=== PATIENT | female | born 1985 | race Two or more races ===

== ENCOUNTER 2018-03-06 10:23 | Emergency (ER) | payer OTHER ==
[2018-03-06 10:29] VITALS: BP 96/57; TEMP 98.4; BMI 33.8
--- NOTE | 2018-03-06 10:43 | PDOC ---
Attending Attestation - HPI HPI: 03/06/18 12:03 The patient is a 32 year old female (), currently 17 weeks with a significant PMH of an appendectomy who presents to the emergency department with vaginal bleeding and abdominal cramping for 3 weeks. The patient reports that her abdominal pain is suprapubic and describes it as a non- radiating cramping pressure that is intermittent and 5/10 in severity. The patient reports that her abdominal suprapubic pain is associated with her vaginal spotting that has also been constant for the same duration of time. The patient denies any other symptoms. She denies any fever, chills, nausea, vomit, diarrhea ,constipation urinary symptoms, or clots. She denies chest pain, shortness of breath, headache and dizziness. The patient denies any other complaints. Documentation prepared by Anne Marie Almeida, acting as medical insurance coder for Karen Aden MD. <Anne Marie Almeida - Last Filed: 03/06/18 12:03> - Resident Resident Name: Gonzalo Mckeon - ED Attending Attestation I have performed the following: I have examined & evaluated the patient, The case was reviewed & discussed with the resident, I agree w/resident's findings & plan, Exceptions are as noted - Physicial Exam PE: GENERAL: Awake, alert, and fully oriented, in no acute distress HEAD: No signs of trauma EYES: PERRLA, EOMI, sclera anicteric, conjunctiva clear ENT: Auricles normal inspection, hearing grossly normal, nares patent, oropharynx clear without exudates. Moist mucosa NECK: Normal ROM, supple, no lymphadenopathy, JVD, or masses LUNGS: Breath sounds equal, clear to auscultation bilaterally. No wheezes, and no crackles HEART: Regular rate and rhythm, normal S1 and S2, no murmurs, rubs or gallops ABDOMEN: Soft, nontender, normoactive bowel sounds. No guarding, no rebound. No masses EXTREMITIES: Normal range of motion, no edema. No clubbing or cyanosis. No cords, erythema, or tenderness NEUROLOGICAL: Cranial nerves II through XII grossly intact. Normal speech, normal gait. Motor and sensation intact. SKIN: Warm, Dry, normal turgor, no rashes or lesions noted. - Medical Decision Making Pt with intermittent spotting, currently 17 WGA. She presents for vaginal spotting, poss recent UTI, and to establish footwear sales leader care. She recently moved from [place]. She was told she had a UTI in the ED at [facility], then was given different information in the clinic. Will repeat UA in ED today. Pt received RhoGAM at [facility]. <Karen Aden - Last Filed: 03/06/18 14:32>
--- NOTE | 2018-03-06 11:20 | PDOC ---
History of Present Illness - General Chief Complaint: Vaginal Bleeding Stated Complaint: VAGINAL BLEEDING (17 WKS ) Time Seen by Provider: 03/06/18 10:41 History Source: Patient Exam Limitations: No Limitations - History of Present Illness Initial Comments: 03/06/18 11:14 The patient is a 32F at 17 weeks by ultrasound who presents to the ER with complaints of abdominal pain and vaginal spotting. The patient states that she' s had suprapubic pressure/cramping for 2-3 weeks which is intermittent, 5/10, nonradiating, and associated with vaginal spotting. Her vaginal spotting has also been constant for 2-3 weeks. She denies passing any dysuria, hematuria, clots, nausea, vomiting, fever, chills, CP, SOB. Past History - Past Medical History Allergies/Adverse Reactions: Allergies Allergy/AdvReac Type Severity Reaction Status Date / Time No Known Allergies Allergy Verified 03/06/18 10:25 Home Medications: Ambulatory Orders NK [No Known Home Medication] 03/06/18 COPD: No Other medical history: DENIES. - Surgical History Appendectomy: Yes - Suicide/Smoking/Psychosocial Hx Smoking History: Former smoker Have you smoked in the past 12 months: No Information on smoking cessation initiated: No Review of Systems - Review of Systems Able to Perform ROS?: Yes Comments:: 03/06/18 11:20 GENERAL/CONSTITUTIONAL: No fever or chills. No weakness. HEAD, EYES, EARS, NOSE AND THROAT: No change in vision. No ear pain or discharge. No sore throat. CARDIOVASCULAR: No chest pain, palpitations, or lightheadedness. RESPIRATORY: No cough, wheezing, shortness of breath, or hemoptysis. GASTROINTESTINAL: Positive No nausea, vomiting, diarrhea, constipation, or abdominal pain. GENITOURINARY: Positive for vaginal bleeding. No dysuria, frequency, hematuria, or change in urination. MUSCULOSKELETAL: No joint or muscle swelling or pain. No neck or back pain. SKIN: No rash or lesions. NEUROLOGIC: No headache, numbness, tingling, weakness, loss of consciousness, or change in strength/sensation. ENDOCRINE: No increased thirst. No abnormal weight change. HEMATOLOGIC/LYMPHATIC: No anemia, easy bleeding, or history of blood clots. ALLERGIC/IMMUNOLOGIC: No hives or skin allergy. Is the patient limited Lao proficient: No *Physical Exam - Vital Signs Last Vital Signs Temp Pulse Resp BP Pulse Ox 98.4 F 97 H 19 96/57 98 03/06/18 10:25 03/06/18 10:25 03/06/18 10:25 03/06/18 10:25 03/06/18 10:25 - Physical Exam Comments: 03/06/18 11:29 GENERAL: Well developed, well nourished. Awake and alert. No acute distress. HEENT: Normocephalic, atraumatic. Hearing grossly normal. Moist mucous membranes. PERRLA, EOMI. No conjunctival pallor. Sclera are non-icteric. NECK: Supple. Full ROM. No JVD. CARDIOVASCULAR: Regular rate and rhythm. No murmurs, rubs, or gallops. PULMONARY: No evidence of respiratory distress. Lungs clear to auscultation bilaterally. No wheezing, rales or rhonchi. ABDOMINAL: Soft. Tender to deep palpation over suprapubic abdomen. No rebound or guarding. GENITOURINARY: No CVA tenderness bilaterally. PELVIC: Midline tenderness without adnexal tenderness or CMT. Normal external genitalia. MUSCULOSKELETAL: Normal range of motion at all joints. No bony deformities or tenderness. EXTREMITIES: No cyanosis. No clubbing. No edema. No calf tenderness or swelling. SKIN: Warm and dry. Normal capillary refill. No rashes. No jaundice. NEUROLOGICAL: Alert, awake, appropriate. Cranial nerves 2-12 intact. Normal speech. Gait is normal without ataxia. PSYCHIATRIC: Cooperative. Good eye contact. Appropriate mood and affect. ED Treatment Course - LABORATORY CBC & Chemistry Diagram: 03/06/18 11:40 03/06/18 11:40 Medical Decision Making - Medical Decision Making 03/06/18 12:00 The patient is a 32F who presents with suprapubic cramping/pressure with vaginal spotting. Ddx is UTI vs threatened . Pt had U/S done at a different facility at the end of January showing an IUP. She does not have any care. She recently moved to [place] and is interested in a establishing care. Pending labs and U/S. 03/06/18 12:37 UA negative. Pending US. 03/06/18 12:38 US shows single, live IUP with FHR of 158. Will d/c pt with PATIENT SUPPORT ASSOCIATE f/u. *DC/Admit/Observation/Transfer Diagnosis at time of Disposition: Vaginal bleeding during - Discharge Dispostion Disposition: HOME Condition at time of disposition: Stable Decision to Admit order: No - Referrals Referrals: Ernesto Cid MD [Staff Physician] - Jimmy Garrido MD [Staff Physician] - - Patient Instructions Printed Discharge Instructions: Managing Symptoms of Additional Instructions: Please follow up with the PATIENT SUPPORT ASSOCIATE and primary care doctor in 2-3 days. Please return to the ER if you have any signs or symptoms of chest pain, shortness of breath, uncontrollable fever, chills, nausea, vomiting, numbness, tingling, or weakness in any part of your body, changes in vision, or slurred speech. Please return to the ER if symptoms persist, worsen, or new symptoms arise. - Post Discharge Activity
[2018-03-06 11:52] LABS: BASO % 0.6 % (0-2.0); EOS % 0.8 % (0-4.5); HEMATOCRIT 35.4 % (32.4-45.2); HEMOGLOBIN 12.1 GM/dL (10.7-15.3); LYMPH % 19.4 % (8-40); MCH 31.2 pg (25.7-33.7); MCHC 34.3 g/dl (32.0-36.0); MONO % 4.7 % (3.8-10.2); NEUT % 74.5 % (42.8-82.8); PLATELET COUNT 307 K/MM3 (134-434); RBC 3.88 M/mm3 (3.60-5.2); RDW 13.3 % (11.6-15.6); WHITE BLOOD COUNT 11.2 K/mm3 (4.0-10.0)
[2018-03-06 11:55] LABS: URINE APPEARANCE SLCLOUDY; URINE BILIRUBIN NEGATIVE (<2.0 mg/dL); URINE COLOR YELLOW; URINE GLUCOSE (UA) NEGATIVE (NEGATIVE); URINE KETONE NEGATIVE (NEGATIVE); URINE LEUK ESTERASE NEGATIVE (NEGATIVE); URINE NITRITE NEGATIVE (NEGATIVE); URINE PROTEIN NEGATIVE (NEGATIVE); URINE UROBILINOGEN NEGATIVE mg/dL (0.2-1.0)
[2018-03-06 12:03] LABS: EPI CELLS FEW /HPF (FEW); URINE MUCUS RARE
[2018-03-06 12:10] LABS: ALBUMIN 3.1 g/dl (3.4-5.0); ANION GAP 11 (8-16); BLOOD UREA NITROGEN 7 mg/dL (7-18); CALCIUM 8.9 mg/dL (8.5-10.1); CHLORIDE 102 mmol/L (98-107); CO2 25 mmol/L (21-32); GLUCOSE,RANDOM 85 mg/dL (74-106); POTASSIUM 3.7 mmol/L (3.5-5.1); SGPT/ALT 24 U/L (12-78); SODIUM 138 mmol/L (136-145)
[2018-03-06 12:46] LABS: ALK PHOS 59 U/L (45-117); BILIRUBIN,TOTAL 0.4 mg/dL (0.2-1.0); CREATININE 0.5 mg/dL (0.55-1.02); SGOT/AST 15 U/L (15-37); TOT PROT 6.8 g/dl (6.4-8.2)
[2018-03-06 13:10] VITALS: PULSE 78
[2018-03-06 14:55] LABS: PLATELET ESTIMATE ADEQUATE
== END 2018-03-06 13:11 | disposition home or self-care (01) ==
LOC: JER 10:23
DX: O26.891 Other specified pregnancy related conditions, first trimester (principal); O46.91 Antepartum hemorrhage, unspecified, first trimester; Z3A.17 17 weeks gestation of pregnancy
CPT/HCPCS: 36415; 76817-TC; 80053; 81003; 81015; 84702; 85025; 86850; 86870; 86900; 86901; 86902; 87086; 99282-25

== ENCOUNTER 2018-08-14 06:20 | Inpatient (IN) | payer OTHER ==
[2018-08-14] MEDS ORDERED: ELECTROLYTE-148 SOLN 1,000 ML IV ONE (06:45)
[2018-08-14 06:53] VITALS: BMI 38.6
[2018-08-14] MEDS ORDERED: OXYTOCIN 20 UNITS in 0.9% NS 40 UNIT/2,000 ML INFUS.BAG IV ONE (07:57)
[2018-08-14] MEDS ORDERED: ceFAZolin SODIUM 1 GM VIAL ONE (07:58)
[2018-08-14] MEDS ORDERED: DEXAMETHASONE SOD PHOSPHATE 4 MG/1 ML VIAL ONE (07:58)
[2018-08-14] MEDS ORDERED: morphine SULFATE/Preservative Free 0.5 MG/ML (1cc Syringe) ONE (07:59)
[2018-08-14] MEDS ORDERED: OXYTOCIN 10 UNITS/ML VIAL ONE (08:49)
[2018-08-14] MEDS ORDERED: MIDAZOLAM HCL 2 MG/2 ML SINGLE DOSE VIAL ONE (08:58)
[2018-08-14] MEDS ORDERED: KETOROLAC TROMETHAMINE 30 MG/1 ML VIAL ONE (09:06)
[2018-08-14] MEDS: OXYTOCIN 20 UNITS in 0.9% NS 20 UNIT/1,000 ML INFUS.BAG IV SCH ×2 (09:10→16:26)
[2018-08-14] MEDS ORDERED: CITRIC ACID/SODIUM CITRATE 30 ML UNIT-DOSE CUP PO ONE (09:14)
[2018-08-14] MEDS ORDERED: ELECTROLYTE-148 SOLN 1,000 ML IV SCH (09:15)
[2018-08-14] MEDS ORDERED: IBUPROFEN 800 MG/8 ML IJ IVPB PRN (09:15)
[2018-08-14] MEDS ORDERED: oxyCODONE HCL 5 MG TABLET PO PRN (09:15)
[2018-08-14] MEDS ORDERED: METHYLERGONOVINE MALEATE 0.2 MG/1 ML AMP IM PRN (09:15)
--- NOTE | 2018-08-14 09:19 | HP ---
Past Medical History - Admission Chief Complaint: RLTCS History of Present Illness: 32yo @ 40.5wks here for ERCS No VB/LOF. No ctx. +FM Previously desires TOLAC, however, no cervical dilation at last office visit. Preg c/b one prior C/S. 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: Alzheimer's, CVA, Dementia, Migraine, Multiple Sclerosis, Peripheral Neuropathy, Parkinson's, Seizure, Syncope, TIA, Vertigo, Other Cardiovascular: No: AFIB, Aneurysm, Aortic Insufficiency, Aortic Stenosis, CAD, CHF, Deep Vein Thrombosis, HTN, Hyperlipdemia, MS, Mitral Insufficiency, Mitral Stenosis, Murmur, Pulmonary Hypertension, Other Pulmonary: No: Asthma, Bronchitis, Cancer, COPD, O2 Dependent, Pneumonia, Previously Intubated, Pulmonary Embolus, Pulmonary Fibrosis, Sleep Apnea, Other Gastrointestinal: No: Ascites, Cancer, Constipation, Crohn's Disease, Diverticulitis, Diverticulosis, Esophageal Varices, Gastritis, GERD, GI Bleed, Hemorrhoids, Hiatal Hernia, Inflamatory Bowel Disease, Irritable Bowel Disease, Pancreatitis, Peptic Ulcer Disease, Ulcerative Colitis, Other ...: 5 ...Para: 1 ...Term: 1 ...: 0 ...Spon : 0 ...Induced : 3 ...Multiple Gestation: 0 ...LMP: 11/02/17 ... Weeks Gestation by Dates: 40.5 ...EDC by Dates: 08/09/18 Infectious Disease: No: AIDS, C-Diff, Herpes Zoster, HIV, MRSA, STD's, Tuberculosis, VREF, Other Psych: No: Addictions, Anxiety, Bipolar, Depression, Panic, Psychosis, Schizophrenia, Other Musculoskeletal: No: Bursitis, Chronic low back pain, Hemiparesis, Hemiplegia, Osteoarthritis, Paraplegia, Other ENT: No: Allergic Rhinitis, Sinusitis, Other Endocrine: No: Jones's Disease, Brian's Disease, Diabetes Insipidus, Diabetes Mellitus, Hyperparathyroidism, Hyperthyroidism, Hypothyroidism, Osteopenia, SIADH, Other - Past Surgical History Past Surgical History: Yes: Hx Myomectomy: No Hx Transabdominal Cerclage: No - Smoking History Smoking history: Never smoked Have you smoked in the past 12 months: No - Alcohol/Substance Use Hx Alcohol Use: No History of Substance Use: reports: None - Social History Usual Living Arrangement: Yes: With Spouse ADL: Independent History of Recent Travel: No Home Medications - Allergies Allergies/Adverse Reactions: Allergies Allergy/AdvReac Type Severity Reaction Status Date / Time thacker Allergy Mild Itching Verified 08/14/18 06:36 kiwi Allergy Mild Itching Verified 08/14/18 06:36 strawberry Allergy Mild Itching Verified 08/14/18 06:36 GRAPES Allergy Mild Itching Uncoded 08/14/18 06:36 - Home Medications Home Medications: Ambulatory Orders Vitamins (Sjr) - 1 tab PO DAILY 08/14/18 Physical Exam - Maternity Vital Signs: Vital Signs Temperature 98.8 F 08/14/18 06:20 Pulse Rate 89 08/14/18 06:20 Respiratory Rate 20 08/14/18 06:20 Blood Pressure 128/72 08/14/18 06:20 O2 Sat by Pulse Oximetry (%) Constitutional: Yes: Well Nourished, No Distress, Calm Eyes: Yes: WNL, Conjunctiva Clear, EOM Intact HENT: Yes: WNL, Atraumatic, Normocephalic Neck: Yes: WNL, Supple, Trachea Midline Cardiovascular: Yes: WNL, Regular Rate and Rhythm Breast(s): Yes: WNL Assessment/Plan 32yo @ 40.5wks here for ERCS Admit to L&D NPO, IVFs Ancef SCDs Risk of procedure discussed, including bleeding, infection, injury to bladder/ bowel/tubes and ovaries. All questions answered. Consent signed. Jeanne Tavarez MD
[2018-08-14] MEDS ORDERED: ONDANSETRON 4 MG/2 ML VIAL IVPUSH PRN (09:34)
[2018-08-14] MEDS ORDERED: ACETAMINOPHEN 1000 MG/100 ML VIAL (NON FORMULARY) IVPB ONE (09:35)
[2018-08-14] MEDS: FERROUS SO4 325 MG TABLET (FP) PO SCH ×2 (10:06→21:37)
--- NOTE | 2018-08-14 10:16 | OP ---
DATE OF OPERATION: 08/14/2018 PREOPERATIVE DIAGNOSIS: A 40-week , elective repeat section. POSTOPERATIVE DIAGNOSIS: A 40-week , elective repeat section. PROCEDURE: Repeat low transverse section, lysis of adhesions. SURGEON: Jeanne Tavarez MD GASTROENTEROLOGY TEACHER: KELLY Estrella ANESTHESIA: Spinal. INTRAVENOUS FLUIDS: Per anesthesia record. ESTIMATED BLOOD LOSS: 600 mL. URINE OUTPUT: Clear urine 100 mL at the end of the procedure. FINDINGS: Viable male , MIKE position, no nuchal, no meconium, 9, 9, weight pending, normal placenta, normal tubes and ovaries bilaterally. There was a thin, however, wide omental band adhesion to the anterior uterus. COMPLICATIONS: None. CONDITION: Stable to recovery. NATURE OF PROCEDURE: After appropriate consents were signed, the patient was taken to the operating room where spinal anesthesia was administered. She was placed in supine position with a left lateral tilt. Kilgore catheter was inserted. The abdomen was prepped and draped in normal sterile fashion. Time-out was performed confirming correct patient and procedure. A Pfannenstiel skin incision was made through the previous incision and carried through the underlying layers until the fascia was nicked in the midline. The fascia was extended with the Cortes scissors bilaterally. The inferior aspect of the fascia was grasped with Mayra clamps, tented upwards, and taken down bluntly and with the Cortes scissors. Attention was then paid to the superior aspect, which was taken down in a similar fashion. The rectus muscles were bluntly in the midline. The peritoneum was entered bluntly. Bladder blade was inserted. Vesicular uterine reflection was grasped, tented upwards, nicked in the midline with the Metzenbaum scissors, and extended laterally with the Metzenbaum scissors. The bladder flap was then created digitally. The bladder blade was reinserted. The uterus was then incised in the lower uterine segment in a transverse fashion. Clear amniotic fluid was noted. Infants head was delivered without difficulty as were the remaining shoulders and body. The cord was clamped and cut. The was then handed off to the pediatric staff. The placenta was removed spontaneously. The uterus was then cleared of clot and debris. The uterus was then exteriorized. The thin, but wide omental band to the anterior uterus in the fundal area was then noted. However, the hysterotomy was closed first with a 1-0 Vicryl in an imbricating Lambert fashion with good hemostasis. Then, using the Metzenbaum scissors, the omental band adhesion on the anterior uterus was then reduced in the areas that were filmy and the fat-consisting areas. Decision was made then to suture ligate using a 1-0 Vicryl. Using the Bovie, the band was then freed. Hemostasis was achieved on the anterior uterine wall with Bovie cautery. Hemostasis was achieved, and in an effort to avoid future adhesions, an Interceed was placed. Once an Interceed was then placed on the anterior uterine wall, the uterus was then reintroduced into the abdominal cavity. The hysterotomy was reexamined and noted to be hemostatic. The anterior uterine wall was noted to also be hemostatic. Bladder blade was then removed. The muscles were reapproximated with a 2-0 chromic, fascia was closed with a 0 Vicryl, skin was closed with a 3-0 Vicryl. Appropriate bandages were placed. Sponge, lap, needle counts were correct x3 at the end of the procedure. Patient did receive 2 g of Ancef at the start of the procedure. She was taken to the recovery area room in stable condition. MD MARGARETTE NEWMAN/[id number]
[2018-08-14] MEDS ORDERED: ACETAMINOPHEN 1000 MG/100 ML VIAL (NON FORMULARY) IVPB PRN (10:42)
[2018-08-14] MEDS: PRENATAL VITAMINS W/ FOLIC ACID TABLET (FP) PO SCH (11:12)
[2018-08-15 09:27] LABS: BASO % 0.3 % (0-2.0); EOS % 0.5 % (0-4.5); HEMATOCRIT 30.3 % (32.4-45.2); HEMOGLOBIN 10.4 GM/dL (10.7-15.3); MCH 31.4 pg (25.7-33.7); MCHC 34.5 g/dl (32.0-36.0); MEAN PLT VOLUME 8.3 fl (7.5-11.1); MONO % 6.5 % (3.8-10.2); NEUT % 68.7 % (42.8-82.8); PLATELET COUNT 245 K/MM3 (134-434); RBC 3.33 M/mm3 (3.60-5.2); RDW 13.6 % (11.6-15.6); WHITE BLOOD COUNT 15.7 K/mm3 (4.0-10.0)
[2018-08-15] MEDS: SIMETHICONE 80 MG TAB.CHEW (FP) PO PRN ×2 (09:35→14:06)
[2018-08-15] MEDS: IBUPROFEN 600 MG TABLET (FP) PO PRN ×3 (09:36→20:05)
[2018-08-15] MEDS: PRENATAL VITAMINS W/ FOLIC ACID TABLET (FP) PO SCH (09:36)
[2018-08-15] MEDS: FERROUS SO4 325 MG TABLET (FP) PO SCH ×2 (09:36→22:00)
--- NOTE | 2018-08-15 10:19 | PN ---
Progress Note (short form) - Note Progress Note: POD #1 - s/p repeat under spinal anesthesia with duramorph. Pt. doing well, resting comfortably in bed. No complaints. Good pain control. No apparent anesthetic complications noted. Continue current care.
[2018-08-15] MEDS: OXYTOCIN 20 UNITS in 0.9% NS 20 UNIT/1,000 ML INFUS.BAG IV SCH (11:28)
[2018-08-15] MEDS: ACETAMINOPHEN 325 MG TABLET (FP) PO PRN ×2 (11:29→20:00)
--- NOTE | 2018-08-15 11:49 | PN ---
Post Progress Note - Subjective Subjective: Pain controlled No issues overnight Type of Delivery: Repeat C/S Vital Signs: Vital Signs Temperature 98.6 F 08/15/18 06:00 Pulse Rate 80 08/15/18 06:00 Respiratory Rate 18 08/15/18 08:00 Blood Pressure 116/76 08/15/18 06:00 O2 Sat by Pulse Oximetry (%) 97 08/14/18 10:30 Uterus: Yes: Fundus Firm, Fundus below umbilicus Incision: Yes: Dressing dry and intact Abdomen/GI: Yes: Abdomen soft Lochia: Yes: Rubra Lochia, amount: Small Extremities: Yes: Calves non-tender Activity: Ambulating - Labs Labs: CBC WBC 15.7 K/mm3 (4.0-10.0) H 08/15/18 07:45 RBC 3.33 M/mm3 (3.60-5.2) L 08/15/18 07:45 Hgb 10.4 GM/dL (10.7-15.3) L 08/15/18 07:45 Hct 30.3 % (32.4-45.2) L D 08/15/18 07:45 MCV 91.0 fl (80-96) 08/15/18 07:45 MCH 31.4 pg (25.7-33.7) 08/15/18 07:45 MCHC 34.5 g/dl (32.0-36.0) 08/15/18 07:45 RDW 13.6 % (11.6-15.6) 08/15/18 07:45 Plt Count 245 K/MM3 (134-434) 08/15/18 07:45 MPV 8.3 fl (7.5-11.1) 08/15/18 07:45 Absolute Neuts (auto) 10.8 K/mm3 (1.5-8.0) H 08/15/18 07:45 Neutrophils % 68.7 % (42.8-82.8) 08/15/18 07:45 Lymphocytes % 24.0 % (8-40) 08/15/18 07:45 Monocytes % 6.5 % (3.8-10.2) 08/15/18 07:45 Eosinophils % 0.5 % (0-4.5) 08/15/18 07:45 Basophils % 0.3 % (0-2.0) 08/15/18 07:45 Nucleated RBC % 0 % (0-0) 08/15/18 07:45 Assessment/Plan 32yo s/p RLTCS, POD#1 Routine PP care OOB, ambulate Labs reviewed Anticipate d/c to home by POD#4 Jeanne Tavarez MD
[2018-08-15] MEDS: DOCUSATE SODIUM 100 MG CAPSULE (FP) PO SCH (22:00)
[2018-08-16] MEDS: FERROUS SO4 325 MG TABLET (FP) PO SCH ×2 (11:04→21:26)
[2018-08-16] MEDS: DOCUSATE SODIUM 100 MG CAPSULE (FP) PO SCH ×2 (11:04→21:26)
[2018-08-16] MEDS: PRENATAL VITAMINS W/ FOLIC ACID TABLET (FP) PO SCH (11:04)
[2018-08-16] MEDS: IBUPROFEN 600 MG TABLET (FP) PO PRN ×4 (11:08→22:20)
[2018-08-16] MEDS: ACETAMINOPHEN 325 MG TABLET (FP) PO PRN ×4 (11:08→22:20)
--- NOTE | 2018-08-16 11:56 | PN ---
Post Progress Note Type of Delivery: Repeat C/S Vital Signs: Vital Signs Temperature 98.7 F 08/15/18 22:00 Pulse Rate 76 08/15/18 22:00 Respiratory Rate 20 08/15/18 22:00 Blood Pressure 115/54 L 08/15/18 22:00 O2 Sat by Pulse Oximetry (%) 97 08/14/18 10:30 Breast Exam: Yes: Soft Uterus: Yes: Fundus below umbilicus Incision: Yes: Dressing dry and intact, Oozing Abdomen/GI: Yes: Tolerating PO Lochia: Yes: Rubra Lochia, amount: Small Extremities: Yes: Calves non-tender Perineum: Yes: Intact Activity: Ambulating (Pain controlled, ) - Labs Labs: CBC WBC 15.7 K/mm3 (4.0-10.0) H 08/15/18 07:45 RBC 3.33 M/mm3 (3.60-5.2) L 08/15/18 07:45 Hgb 10.4 GM/dL (10.7-15.3) L 08/15/18 07:45 Hct 30.3 % (32.4-45.2) L D 08/15/18 07:45 MCV 91.0 fl (80-96) 08/15/18 07:45 MCH 31.4 pg (25.7-33.7) 08/15/18 07:45 MCHC 34.5 g/dl (32.0-36.0) 08/15/18 07:45 RDW 13.6 % (11.6-15.6) 08/15/18 07:45 Plt Count 245 K/MM3 (134-434) 08/15/18 07:45 MPV 8.3 fl (7.5-11.1) 08/15/18 07:45 Absolute Neuts (auto) 10.8 K/mm3 (1.5-8.0) H 08/15/18 07:45 Neutrophils % 68.7 % (42.8-82.8) 08/15/18 07:45 Lymphocytes % 24.0 % (8-40) 08/15/18 07:45 Monocytes % 6.5 % (3.8-10.2) 08/15/18 07:45 Eosinophils % 0.5 % (0-4.5) 08/15/18 07:45 Basophils % 0.3 % (0-2.0) 08/15/18 07:45 Nucleated RBC % 0 % (0-0) 08/15/18 07:45 Assessment/Plan 32yo s/p RLTCS, POD#2 Routine PP care OOB, ambulate Labs reviewed Anticipate d/c to home by POD#4 Jeanne Tavarez MD
[2018-08-16] MEDS: SIMETHICONE 80 MG TAB.CHEW (FP) PO PRN ×2 (17:02→22:20)
[2018-08-17 07:28] LABS: BASO % 0.4 % (0-2.0); EOS % 2.7 % (0-4.5); HEMATOCRIT 31.5 % (32.4-45.2); HEMOGLOBIN 10.7 GM/dL (10.7-15.3); LYMPH % 28.3 % (8-40); MCH 31.4 pg (25.7-33.7); MCHC 33.9 g/dl (32.0-36.0); MEAN CELL VOLUME 92.6 fl (80-96); MEAN PLT VOLUME 7.9 fl (7.5-11.1); MONO % 5.9 % (3.8-10.2); NEUT % 62.7 % (42.8-82.8); PLATELET COUNT 246 K/MM3 (134-434); RBC 3.41 M/mm3 (3.60-5.2); RDW 13.9 % (11.6-15.6); WHITE BLOOD COUNT 9.4 K/mm3 (4.0-10.0)
--- NOTE | 2018-08-17 07:28 | DS ---
Physical Examination Vital Signs: Vital Signs Temperature 98.7 F 08/16/18 21:00 Pulse Rate 82 08/16/18 21:00 Respiratory Rate 20 08/16/18 21:00 Blood Pressure 118/63 08/16/18 21:00 O2 Sat by Pulse Oximetry (%) 97 08/14/18 10:30 Constitutional: Yes: Well Nourished, No Distress, Calm Eyes: Yes: WNL, Conjunctiva Clear, EOM Intact HENT: Yes: WNL, Atraumatic, Normocephalic Neck: Yes: WNL, Supple, Trachea Midline Cardiovascular: Yes: WNL, Regular Rate and Rhythm Respiratory: Yes: WNL, Regular, CTA Bilaterally Gastrointestinal: Yes: WNL, Normal Bowel Sounds Musculoskeletal: Yes: WNL Extremities: Yes: WNL Edema: No Integumentary: Yes: WNL Neurological: Yes: WNL, Alert, Oriented ...Motor Strength: WNL Psychiatric: Yes: WNL Discharge Summary Reason For Visit: SCHEDULE RLTCS Procedures: Principal: RLTCS Other Procedures: RLTCS Hospital Course: Pt presented for scheduled RLTCS Her procedure was uncomplicated Her postoperative course was uncomplicated and she was discharged home on POD#3 Condition: Stable - Instructions Referrals: Jeanne Tavarez MD [Staff Physician] - Disposition: HOME - Home Medications Comprehensive Discharge Medication List: Ambulatory Orders Vitamins (Sjr) - 1 tab PO DAILY 08/14/18 Ibuprofen 600 mg PO Q6H PRN #30 tablet 08/16/18 Oxycodone HCl/Acetaminophen [Percocet 5-325 mg Tablet -] 1 - 2 tab PO Q6H PRN # 20 tab MDD 4 08/16/18
[2018-08-17] MEDS: PRENATAL VITAMINS W/ FOLIC ACID TABLET (FP) PO SCH (09:43)
[2018-08-17] MEDS: IBUPROFEN 600 MG TABLET (FP) PO PRN (09:43)
[2018-08-17] MEDS: DOCUSATE SODIUM 100 MG CAPSULE (FP) PO SCH (09:43)
[2018-08-17] MEDS: FERROUS SO4 325 MG TABLET (FP) PO SCH (09:43)
[2018-08-17] MEDS: ACETAMINOPHEN 325 MG TABLET (FP) PO PRN (09:43)
[2018-08-17 09:52] VITALS: BP 126/70; PULSE 76; TEMP 97.8
[2018-08-17 11:36] LABS: ANISOCYTOSIS 0; MACROCYTOSIS 0; PLATELET ESTIMATE NORMAL
--- NOTE | 2018-08-21 19:33 | PATH ---
Surgical Pathology Report Patient Name: SHANTELLE BROWN [facility]. Rec. 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 Electronically Signed Gaye Downs M.D. Gross Description The specimen is received fresh labeled placenta and is a 659 gram, 18.5 x 15.0 x 3.3 cm. placenta with attached membranes and umbilical cord. The attached membranes are bosch, translucent with focal opacities and insert marginally. The umbilical cord measures 38 cm. in length and averages 1.4 cm. in diameter. The cord inserts eccentrically, 5 cm. to the nearest margin. No true knots or strictures are identified. Cut surface of the umbilical cord reveals 3 vessels. The surface is hayes blue with moderate fibrin deposition and appropriate caliber vessels. The maternal surface is red-brown and intact. Sectioning reveals red-brown, spongy parenchyma. No lesions are identified. Real Estate Agent/Broker sections are submitted in three cassettes as follows: 1- membrane rolls and umbilical cord; 2-3- full thickness sections of placenta. 08/20/2018 [facility]08/20/2018
== END 2018-08-17 13:30 | disposition home or self-care (01) | DRG 540 ==
LOC: JLDR 06:20 → J3W 11:32
PROVIDERS: ADMIT Obstetrics & Gynecology; ATTEND Obstetrics & Gynecology
PROC: 10D00Z1 Extraction of Products of Conception, Low, Open Approach (ICD-10-PCS; principal; 2018-08-14)
PROC: 3E0334Z Introduction of Serum, Toxoid and Vaccine into Peripheral Vein, Percutaneous Approach (ICD-10-PCS; 2018-08-14)
DX: O34.211 Maternal care for low transverse scar from previous cesarean delivery (principal); N85.8 Other specified noninflammatory disorders of uterus; Z3A.40 40 weeks gestation of pregnancy; Z29.13 Encounter for prophylactic Rho(D) immune globulin; Z37.0 Single live birth
CPT/HCPCS: 36415; 85025; 85461; 86850; 86900; 86901; 86999; 88307-TC

== ENCOUNTER 2019-07-27 11:00 | Day surgery (SDC) | payer OTHER ==
[2019-07-26 09:53] VITALS: BMI 34.5
--- NOTE | 2019-07-27 10:41 | HP ---
History & Physical Update - History History: No Change - Physical Physical: No Change - Assessment Assessment: No Change - Plan Plan: No Change (Chart reviewed, consent signed Patient forgot to take Cytotec in preparation for the procedure Explained to patient will attempt the procedure , if difficulty accessing uterus will have to reschedule)
--- NOTE | 2019-07-27 10:42 | OP ---
Operative Note - Note: Operative Date: 07/27/19 Pre-Operative Diagnosis: 33yo P2 with Pelvic pain Operation: Hysteroscopy/Polypectomy/D&C Findings: Small endometrial polyps Uterus entered without difficulty Post-Operative Diagnosis: Other (endometrial polyps) Surgeon: Razia Brown Anesthesiologist/DYE AUTOMATION OPERATOR: Russ Jason Anesthesia: MAC Specimens Removed: Endometrial curettings/polyps Estimated Blood Loss (mls): 5 Instrument used (Debridements only): Symphion Hysteroscope Drains & Tubes with Location: Fluid Defficit - 400cc Fluid Volume Replaced (mls): 500 Operative Report Dictated: Yes
[~2019-07-27 11:00] MED LIST: ELECTROLYTE-148 SOLN 1,000 ML IV SCH; IBUPROFEN 600 MG TABLET (FP) PO PRN; IBUPROFEN 800 MG/8 ML IJ IVPB PRN; ONDANSETRON 4 MG/2 ML VIAL IVPUSH PRN; oxyCODONE HCL 5 MG TABLET PO PRN
[2019-07-27] MEDS ORDERED: LACTATED RINGERS SOLUTION 1,000 ML IV SCH (12:00)
[2019-07-27 13:29] VITALS: BP 119/68; PULSE 87; TEMP 97.7
--- NOTE | 2019-07-28 02:24 | OP ---
DATE OF OPERATION: 07/27/2019 PREOPERATIVE DIAGNOSIS: A 33-year-old, para 2, with pelvic pain. OPERATION: Hysteroscopy, polypectomy, dilation and curettage. FINDINGS: Small endometrial polyps. Uterus entered with Symphion hysteroscope without difficulty. POSTOPERATIVE DIAGNOSIS: Endometrial polyps. SURGEON: Razia Brown MD ANESTHESIOLOGIST: Russ Jason MD ANESTHESIA: MAC. SPECIMENS REMOVED: Endometrial curettings and polyps. DESCRIPTION OF OPERATIVE PROCEDURE: After assuring informed consent, patient was brought to the operating room where she was placed in the dorsal lithotomy position. Vagina and perineum were prepped and draped in the sterile fashion. The Symphion hysteroscope was assembled, primed, and light balanced. The Huang retractors were placed into the vagina. Cervix was visualized, grasped with single-toothed tenaculum, and gradually dilated to accommodate 6.3-mm Symphion hysteroscope. Symphion hysteroscope was entered into the uterine cavity without any difficulty under direct visualization. After the above-stated findings, the resectoscope instrument was introduced through the Symphion hysteroscope and intrauterine contents were shaved and subsequently sent to Pathology. Once the uterine cavity was empty, the instruments were removed from the uterus, cervix, and vagina. Excellent hemostasis was noted. Estimated blood loss was 5 mL. All sponges and instrument counts were correct x2. Patient received 500 mL of IV fluids and drained 250 mL of urine at the beginning of the case. Fluid deficit was found to be 400 mL. Patient was brought to the recovery room in stable, extubated condition. Daquan [id number]
--- NOTE | 2019-07-29 12:58 | PATH ---
Surgical Pathology Report Patient Name: SHANTELLE BROWN [facility]. Rec. #: [id number] /Age/Gender: 1985 (Age: 33) / F Account: [id number] Location: [facility] SURGICAL Taken: 07/27/2019 Received: 07/27/2019 Reported: 07/29/2019 Physicians: Razia Brown M.D. Specimen(s) Received ENDOMETRIAL CURETTINGS AND POLYPS Clinical History Pelvic pain Final Diagnosis ENDOMETRIAL CURETTINGS AND POLYPS, POLYPECTOMY, DILATION AND CURETTAGE: POLYPOID FRAGMENTS OF SECRETORY ENDOMETRIUM, BUNDLES OF SMOOTH MUSCLE SUGGESTIVE OF SUBMUCOSAL LEIOMYOMA, AND RARE ENDOCERVICAL TISSUE ADMIXED WITH MUCUS. Electronically Signed Gyae Downs M.D. Gross Description Received in formalin labeled "endometrial curettings and polyps," is a 4.0 x 3.5 x 0.3 cm aggregate of bosch soft tissue fragments admixed with mucus. The formalin is filtered and the specimen is entirely submitted in 3 cassettes. /07/28/2019 saudi/07/28/2019
== END 2019-07-27 13:10 | disposition home or self-care (01) ==
LOC: JASU-SURG 11:00
PROVIDERS: ATTEND Obstetrics & Gynecology
PROC: 0UDB7ZX Extraction of Endometrium, Via Natural or Artificial Opening, Diagnostic (ICD-10-PCS; 2019-07-27)
PROC: 0UJD8ZZ Inspection of Uterus and Cervix, Via Natural or Artificial Opening Endoscopic (ICD-10-PCS; 2019-07-27)
PROC: 0UB97ZX Excision of Uterus, Via Natural or Artificial Opening, Diagnostic (ICD-10-PCS; principal; 2019-07-27 10:00)
DX: N84.0 Polyp of corpus uteri (principal)
CPT/HCPCS: 94760

== ENCOUNTER 2020-05-31 14:26 | Emergency (ER) | payer OTHER ==
[2020-05-31 14:31] VITALS: BP 141/96; PULSE 90; TEMP 98.4; BMI 34.2
--- NOTE | 2020-05-31 14:32 | PDOC ---
Rapid Medical Evaluation Chief Complaint: Pain Time Seen by Provider: 05/31/20 14:28 Medical Evaluation: Allergies Allergy/AdvReac Type Severity Reaction Status Date / Time thacker Allergy Mild Itching Verified 08/14/18 06:36 kiwi Allergy Mild Itching Verified 08/14/18 06:36 strawberry Allergy Mild Itching Verified 08/14/18 06:36 NUTS Allergy Severe ITCHY Uncoded 07/26/19 09:56 THROAT GRAPES Allergy Mild Itching Uncoded 08/14/18 06:36 ALL FRUIT Allergy Uncoded 07/26/19 09:55 05/31/20 14:30 Pt presents for lower abdominal pain for one month worsening yesterday after intercourse Exam: Defer to provider Orders: TVUS, labs Pt to proceed to the ER for further evaluation Discharge Disposition - Diagnosis Vaginal bleeding - Referrals - Patient Instructions - Post Discharge Activity
--- OUTSIDE RECORDS SUMMARY | 2020-05-31 15:07 | XMS ---
:1985 Author Organization [facility] Care Team Providers Name Role Phone Berberyan, Ani Unavailable [phone] Berberyan, Ani Unavailable [phone] Tere Nievesd Unavailable [phone] Ezequiel, Tered Unavailable [phone] Otoniel Patino MD Unavailable Unavailable Otoniel Patino MD Unavailable Unavailable Otoniel Patino MD Unavailable Unavailable Otoniel Patino MD Unavailable Unavailable Otoniel Patino MD Unavailable Unavailable Re-disclosure Warning The records that you are about to access may contain information from federally- assisted alcohol or drug abuse programs. If such information is present, then the following federally mandated warning applies: This information has been disclosed to you from records protected by federal confidentiality rules (42 CFR part 2). The federal rules prohibit you from making any further disclosure of this information unless further disclosure is expressly permitted by the written consent of the person to whom it pertains or as otherwise permitted by 42 CFR part 2. A general authorization for the release of medical or other information is NOT sufficient for this purpose. The Federal rules restrict any use of the information to criminally investigate or prosecute any alcohol or drug abuse patient.The records that you are about to access may contain highly sensitive health information, the redisclosure of which is protected by Article 27-F of the [place] State Public Health law. If you continue you may haveaccess to information: Regarding HIV / AIDS; Provided by facilities licensed or operated by the [facility] Office of Mental Health; or Provided by the [facility] Office for People With Developmental Disabilities. If such information is present, then the following [facility] mandated warning applies: This information has been disclosed to you from confidential records which are protected by state law. State law prohibits you from making any further disclosure of this information without the specific written consent of the person to whom it pertains, or as otherwise permitted by law. Any unauthorized further disclosure in violation of state law may result in a fine or fdc sentence or both. A general authorization for the release of medical or other information is NOT sufficient authorization for further disclosure. Allergies and Adverse Reactions Type Description Substance Reaction Status Data Source(s ) kiwi kiwi kiwi rash Active eCW2 ([facility]) strawberries strawberries strawberries rash Active eCW2 ([facility]) Propensity to kiwi No known allergies rash Active eCW 3 ([place] adverse reactions (situation) [facility]) Propensity to strawberries No known allergies rash Active e CW3 ([place] adverse reactions (situation) [facility]) Propensity to Propensity to Propensity to NEXTG EN ([facility] adverse reactions adverse reactions adverse reactions [facility] ([facility]order[facility] (disorder) (disorder) Center) Family History Family Member Family Member Family Member Date of Description Data Source(s) Name Gender Status Status Unknown Female Diagnosis 02/23/2018 NEXTGEN ([facility] 12:00:00 AM [facility] EDT Center) Encounters Encounter Providers Location Date Indications Data Source(s ) Emergency H 02/18/2019 [facility] 03:27:00 Medical Center PM EDT Attender: Nimo [facility] 11/10/2018 NEXTGEN ([facility] 11:00:00 [facility] AM EDT - Medical 11/10/2018 Center) 11:00:00 AM EDT Outpatient 11/07/2018 [facility] [place] 12:32:00 Medical Center PM EDT Outpatient 11/07/2018 [place] 12:00:00 Medical Center AM EDT Emergency H 11/03/2018 [facility] 02:36:00 Medical Center PM EDT 11/03/2018 [facility] [place] 12:00:00 Medical [place] AM EDT Outpatient 11/02/2018 [facility] [place] 01:32:00 Medical Center PM EDT Outpatient 11/02/2018 [facility] 01:31:00 Medical Center PM EDT Outpatient 11/02/2018 [facility] 12:00:00 Medical Center AM EDT Outpatient [place] [facility] 10/02/2018 eCW3 ([facility] 12:00:00 [place] [facility] AM EST - Care) 10/02/2018 12:00:00 AM EST [facility] 07/22/2018 eCW2 ([place] 12:00:00 [facility] AM EST Care) [facility] 07/15/2018 eCW2 ([place] [facility] 12:00:00 [facility] AM EST Care) [facility] 07/08/2018 eCW2 ([place] 12:00:00 [facility] AM EST Care) [facility] 06/24/2018 eCW2 ([place] [facility] 12:00:00 [facility] AM EDT Care) [facility] 06/10/2018 eCW2 ([place] [facility] 12:00:00 [facility] AM EDT Care) [facility] 05/27/2018 eCW2 ([place] [facility] 12:00:00 [facility] AM EDT Care) [facility] 05/06/2018 eCW2 ([place] [facility] 12:00:00 [facility] AM EDT Care) [facility] 05/04/2018 eCW2 ([place] [facility] 12:00:00 [facility] AM EDT Care) [facility] 04/23/2018 eCW2 ([place] [facility] 12:00:00 [facility] AM EDT Care) [facility] 04/03/2018 eCW2 ([facility] [place] [facility] 12:00:00 [facility] AM EDT Care) [facility] 03/26/2018 eCW2 ([place] [facility] 12:00:00 [facility] AM EDT Care) [facility] 03/19/2018 eCW2 ([facility] 12:00:00 [facility] AM EDT Care) [facility] 03/09/2018 eCW2 ([facility] 12:00:00 [facility] AM EDT Care) Attender: [facility] 03/02/2018 NEXTGEN [facility] [place] Pat[facility] MD PM EDT - Medical 03/02/2018 Center) 01:53:00 PM EDT 03/02/2018 [place] 12:00:[address] [facility] AM EDT OutpatientOFFICE Attender: [facility] 02/23/2018 NEXTG EN ([facility] 09:38:00 [facility] V[facility], [facility] AM EDT - Medical 02/23/2018 Center) 09:38:00 AM EDT Immunizations Vaccine Date Status Description Data Source(s) No Known Immunizations completed eCW2 ([facility]) Medications Medication Brand Start Product Dose Route Administrative Pharmacy [facility] Indications Reaction Description Data Name Date Form Instructions Instructions Source(s) Loratadine Lorata .0 active Loratadi ne eCW3 10 MG Oral dine 2019 {tabl 10 mg ([place] Tablet 10 mg 12:00: et} [place] Loratadine 00 AM Health 10 mg [facility] Care) UNK 03/26/ active eCW 3 VITAMINS 2018 VITAMINS ([place] 12:00: [place] 00 AM Health EDT Care) Iron UNK 03/26/ active Iron eCW3 ([place] 2017 ([place] ([place] Sulfate) 12:00: Sulfate) [place] 00 AM Health EDT Care) Iron UNK 03/26/ active eCW2 ([place] 2018 ([place] Sulfate) 12:00: [place] 00 AM Health EDT Care) UNK 03/26/ active eCW2 Vitamins 2018 ([place] 12:00: [place] 00 AM Health EDT Care) Folic Acid folic . ORAL active take 1 NE XTGEN 0.4 MG Oral acid 2018 {tbl} tablet by (S aint Tablet 400 12:00: oral route Eliu hs folic acid mcg 00 AM every day Med ical 400 mcg tablet EDT Center) tablet Provida DHA prenat 0702/ 1.00 ORAL active take 1 NEXTGEN 32 mg-1.25 90/iro 2018 {caps capsule by ([facility] mg-110 mg n 12:00: ule} oral route Angela sephs capsule fum,ps 00 AM every day Medi ilir /folic EDT Center) /dha Prednisone predni 2 complet Teo t 20 MG Oral SONE ed [place] Tablet 20 mg Medical predniSONE Tablet Center 20 mg , Tablet, Ordere Ordered By: d By: Sergio Perdomo PADirection PADire s: 2 tablet ctions oral daily : 2 tablet oral daily Ibuprofen ibupro 1 complet [facility] 800 MG Oral fen ed [place] Tablet 800 mg Medical ibuprofen Tablet Center 800 mg , Tablet, Ordere Ordered By: d By: Sergio Perdomo PADirection PADire s: 1 tablet ctions oral every : 1 eight hours tablet PRN oral pain-modera every te eight hours PRN pain-m oderat e Amoxicillin amoxic 1 complet [place] nt 875 MG / illin- ed [place] Clavulanate pot Medical 125 MG Oral clavul Center Tablet anate amoxicillin 875 -pot mg-125 clavulanate mg 875 mg-125 Tablet mg Tablet, , Ordered By: Peace mason By: Carmelo Guerra oscar s: 1 tablet Ashley oral every a, twelve PADire hours with ctions or after : 1 food tablet oral every twelve hours with or after food Ibuprofen ibupro 2 complet [facility] 200 MG Oral fen ed [place] Tablet 200 mg Medical ibuprofen Tablet Center 200 mg , Tablet, Ordere Ordered By: d By: oscar Green Ashley s: 2 tablet a, oral every PADire eight hours ctions PRN pain : 2 tablet oral every eight hours PRN pain Insurance Providers Payer name Policy type Policy ID Covered Covered green party's Policy P eric / Coverage green party ID relationship to Briones Inf ormation type briones MEDICAID [id number] SP [id number] MVP MEDICAID [id number] SP [id number] O MVP MEDICAID [id number] SP [id number] O MVP MEDICAID [id number] SP [id number] HMO O MVP/HHP O [id number] 01 [id number] MVP/HHP O [id number] 01 [id number] AFFINITY O [id number] 01 [id number] HEALTH PLAN Problems, Conditions, and Diagnoses Code Display Name Description Problem Type Effective Data Sour ce(s) Dates Z98.891 History of Previous Problem 03/26/2018 eCW3 ([facility] 12:00:00 AM [facility] EDT Care) Z98.891 History of Previous Problem 03/26/2018 eCW2 ([facility] 12:00:00 AM [facility] EDT Care) Z33.1 Problem eCW2 ([facility]) F17.210 Nicotine NICOTINE Diagnosis 02/18/2019 [facility] dependence, DEPENDENCE, 03:27:[address] [facility] [address] cigarettes, CIGARETTES, EDT uncomplicated UNCOMPLICATED M25.532 Pain in left wrist PAIN IN LEFT WRIST Diagnosis 9 [place] 03:27:00 [facility] M25.539 Pain in PAIN IN Diagnosis 02/18/2019 [facility] unspecified wrist UNSPECIFIED WRIST 03:27:[address] [facility] EDT J03.90 Acute tonsillitis, ACUTE TONSILLITIS, Diagnosis 9 [facility] unspecified UNSPECIFIED 02:36:[address] [facility] [address] EDT R50.9 Fever, unspecified FEVER, UNSPECIFIED Diagnosis 9 [place] 02:36:00 PM [facility] Surgeries/Procedures Procedure Description Date Indications Data Source(s) URNLS DIP STICK/TABLET 05/27/2018 eCW2 ([facility] RGNT AUTO W/O 12:00:00 AM [facility] ) MICROSCOPY OFFICE/OUTPATIENT 02/23/2018 NEXTGEN (S aint VISIT, EST 12:00:00 AM EDT - [facility] dical 02/23/2018 [place]) 12:00:00 AM EDT Results ID Date Data Source [id number] 03/28/2020 01:54:00 PM EDT [facility] Diagnos tics Name Value Range Interpretation Code Description Data Cathy rce(s) Supporting Document(s ) SARS-COV-2 [facility] RNA RESP Diagnostics QL KATHIA+PROBE This lab was ordered by [facility] and reported by [facility]. ID Date Data Source Microbiology.[id number] 11/03/2018 03:02:00 PM EDT [facility] 400 Name Value Range Interpretation Description Data Sup porting Code Source(s) Document(s ) UNK <item><content [facility] styleCode="[facility] [place] ">Culture Medical Status Center </content>
<table><tbody>< tr><td>Specimen Number:</td><td >[id number]</td> </tr><tr><td>Sa mple Collection Date/Time: </td><td> 3:02 PM</td></tr><tr ><td>Specimen Source:</td><td >THROAT</td></t r><tr><td>Cultu re Report:</td><td >NEGATIVE FOR BETA HEMOLYTIC STREPTOCOCCI </td></tr><tr>< td>Throat-Nose Culture:</td><t d>Collection Plate Date: 11/03/2018 15:07 </td></tr><tr>< td>Culture Status:</td><td >Final </td></tr></tbo dy></table></it em> Streptococcus <item><content [facility] pyogenes Ag styleCode="[facility] [Presence] in ">Rapid Strep A Medical Unspecified </content>
Center specimen by <table><tbody>< Immunoassay tr><td>Specimen Number:</td><td >[id number]</td> </tr><tr><td>Sa mple Collection Date/Time: </td><td> 019 3:02 PM</td></tr><tr ><td>Specimen Source:</td><td >THROAT</td></t r><tr><td>Rapid Strep A:</td><td>NEGA TIVE </td></tr></tbo dy></table></it em> UNK <item><content [facility] styleCode="[facility] [place] ">Culture Medical Report Center </content>
<table><tbody>< tr><td>Specimen Number:</td><td >[id number]</td> </tr><tr><td>Sa mple Collection Date/Time: </td><td> 019 3:02 PM</td></tr><tr ><td>Specimen Source:</td><td >THROAT</td></t r><tr><td>Throa t-Nose Culture:</td><t d>Collection Plate Date: 11/03/2018 15:07 </td></tr><tr>< td>Culture Status:</td><td >Final </td></tr><tr>< td>Culture Report:</td><td >NEGATIVE FOR BETA HEMOLYTIC STREPTOCOCCI </td></tr></tbo dy></table></it em> ID Date Data Source Microbiology 11/03/2018 03:02:00 PM EDT [facility] Name Value Range Interpretation Description Data Sup porting Code Source(s) Document(s ) Streptococcus <item><content [facility] pyogenes Ag styleCode="[facility] [Presence] in d">Rapid Strep Medical Unspecified A Center specimen by </content><br/ Immunoassay ><table><tbody ><tr><td>Speci men Number:</td><t d>[id number]</t d></tr><tr><td >Sample Collection Date/Time: </td><td>2018 3:02 PM</td></tr><t r><td>Specimen Source:</td><t d>THROAT</td>< /tr><tr><td>Ra pid Strep A:</td><td>NEG ATIVE </td></tr></tb brandon></table></ item> UNK <item><content [facility] styleCode="[facility] d">Culture Medical Report Center </content><br/ ><table><tbody ><tr><td>Speci men Number:</td><t d>[id number]</t d></tr><tr><td >Sample Collection Date/Time: </td><td>2018 3:02 PM</td></tr><t r><td>Specimen Source:</td><t d>THROAT</td>< /tr><tr><td>Th roat-Nose Culture:</td>< td>Collection Plate Date: 11/03/2018 15:07 </td></tr><tr> <td>Culture Status:</td><t d>Preliminary </td></tr><tr> <td>Culture Report:</td><t d>Culture in progress </td></tr></tb brandon></table></ item> UNK <item><content [facility] styleCode="[facility] d">Culture Medical Status Center </content><br/ ><table><tbody ><tr><td>Speci men Number:</td><t d>[id number]</t d></tr><tr><td >Sample Collection Date/Time: </td><td>2018 3:02 PM</td></tr><t r><td>Specimen Source:</td><t d>THROAT</td>< /tr><tr><td>Cu lture Report:</td><t d>Culture in progress </td></tr><tr> <td>Throat-Nos e Culture:</td>< td>Collection Plate Date: 11/03/2018 15:07 </td></tr><tr> <td>Culture Status:</td><t d>Preliminary </td></tr></tb brandon></table></ item> ID Date Data Source Urinalysis.[id number] 11/03/2018 03:01:[address] [facility] 0 Name Value Range Interpretation Description Data Sup porting Code Source(s) Document(s ) Color of Urine YELLOW <content [facility] styleCode="[facility] d">Color, Medical Urine Center </content>YELL OW <content styleCode="Oscar lics"> (YELLOW )</content> UNK CLEAR <content [facility] styleCode="[facility] d">Urine Medical Clarity Center </content>JEN R <content styleCode="Oscar lics"> (CLEAR )</content> pH of Urine by 4.5-8.0 <content [facility] Test strip styleCode="[facility] d">Urine pH Medical </content>6.0 Center <content styleCode="Oscar lics"> (4.5-8.0 )</content> UNK NEGATIVE <content [facility] styleCode="[facility] d">Urine Medical Bilirubin Center </content>NEGA TIVE <content styleCode="Oscar lics"> (NEGATIVE )</content> Specific 1.015-1.02 <content [facility] gravity of 5 styleCode="[facility] Yin Urine by Test d">Urine Medical strip Specific Center [place] </content>1.02 5 <content styleCode="Oscar lics"> (1.015-1.025 )</content> Hemoglobin NEGATIVE <content [facility] [Presence] in styleCode="[facility] Urine by Test d">Urine Blood Medical strip </content>LARG Center E <content styleCode="Oscar lics"> (NEGATIVE )</content> Glucose NEGATIVE <content [facility] [Mass/volume] styleCode="[facility] in Urine by d">Urine Medical Test strip Glucose Center </content>NEGA TIVE MG/DL<content styleCode="Oscar lics"> (NEGATIVE MG/DL)</conten t> Ketones NEGATIVE <content [facility] [Mass/volume] styleCode="[place] in Urine by d">Urine Medical Test strip Ketone Center </content>NEGA TIVE MG/DL<content styleCode="Oscar lics"> (NEGATIVE MG/DL)</conten t> Nitrite NEGATIVE <content [facility] [Presence] in styleCode="[place] Yin Urine by Test d">Urine Medical strip Nitrite Center </content>NEGA TIVE <content styleCode="Oscar lics"> (NEGATIVE )</content> Protein NEGATIVE <content [facility] [Mass/volume] styleCode="[place] in Urine by d">Urine Medical Test strip Protein Center </content>NEGA TIVE MG/DL<content styleCode="Oscar lics"> (NEGATIVE MG/DL)</conten t> UNK 0-3 <content [facility] styleCode="[facility] Sofias d">Urine Red Medical Blood Cell Center </content>50 - 100 HPF<content styleCode="Oscar lics"> (0-3 HPF)</content> Urobilinogen 0.2-1.0 <content [facility] [Units/volume] styleCode="[place] [facility] in Urine by d">Urine Medical Test strip Urobilinogen Center </content>0.2 MG/DL<content styleCode="Oscar lics"> (0.2-1.0 MG/DL)</conten t> Leukocyte NEGATIVE <content [facility] esterase styleCode="[facility] Yin [Presence] in d">Urine Medical Urine by Test Leukocyte Center strip </content>NEGA TIVE <content styleCode="Oscar lics"> (NEGATIVE )</content> UNK 0-3 <content [facility] styleCode="[facility] [place] d">Urine White Medical Blood Cell Center </content>0-3 HPF<content styleCode="Oscar lics"> (0-3 HPF)</content> UNK <content [facility] styleCode="[place] d">Epithelial Medical Cell Center </content>2-5 LPF (Reference Range: not available)<br/ > UNK NEGATIVE <content [facility] styleCode="[place] d">Urine Medical Bacteria Center </content>FEW HPF<content styleCode="Oscar lics"> (NEGATIVE HPF)</content> ID Date Data Source Urinalysis 11/03/2018 03:01:00 PM EDT [facility] Name Value Range Interpretation Description Data Sup porting Code Source(s) Document(s ) Color of Urine YELLOW <content [facility] styleCode="[facility] [place] d">Color, Medical Urine Center </content>YELL OW <content styleCode="Oscar lics"> (YELLOW )</content> Glucose NEGATIVE <content [facility] [Mass/volume] styleCode="[place] in Urine by d">Urine Medical Test strip Glucose Center </content>NEGA TIVE MG/DL<content styleCode="Oscar lics"> (NEGATIVE MG/DL)</conten t> Ketones NEGATIVE <content [facility] [Mass/volume] styleCode="[place] in Urine by d">Urine Medical Test strip Ketone Center </content>NEGA TIVE MG/DL<content styleCode="Oscar lics"> (NEGATIVE MG/DL)</conten t> UNK CLEAR <content [facility] styleCode="[facility] [place] d">Urine Medical Clarity Center </content>JEN R <content styleCode="Oscar lics"> (CLEAR )</content> UNK NEGATIVE <content [facility] styleCode="[facility] [place] d">Urine Medical Bilirubin Center </content>NEGA TIVE <content styleCode="Oscar lics"> (NEGATIVE )</content> Specific 1.015-1.02 <content [facility] gravity of 5 styleCode="Flakita Sofias Urine by Test d">Urine Medical strip Specific Center [place] </content>1.02 5 <content styleCode="Oscar lics"> (1.015-1.025 )</content> pH of Urine by 4.5-8.0 <content [facility] Test strip styleCode="Fl[facility] [place] d">Urine pH Medical </content>6.0 Center <content styleCode="Oscar lics"> (4.5-8.0 )</content> Urobilinogen 0.2-1.0 <content [facility] [Units/volume] styleCode="Flakita Sofias in Urine by d">Urine Medical Test strip Urobilinogen Center </content>0.2 MG/DL<content styleCode="Oscar lics"> (0.2-1.0 MG/DL)</conten t> Protein NEGATIVE <content [facility] [Mass/volume] styleCode="[place] Yin in Urine by d">Urine Medical Test strip Protein Center </content>NEGA TIVE MG/DL<content styleCode="Oscar lics"> (NEGATIVE MG/DL)</conten t> Hemoglobin NEGATIVE <content [facility] [Presence] in styleCode="Flakita Yin Urine by Test d">Urine Blood Medical strip </content>LARG Center E <content styleCode="Oscar lics"> (NEGATIVE )</content> Leukocyte NEGATIVE <content [facility] esterase styleCode="Fl[place]ita Yin [Presence] in d">Urine Medical Urine by Test Leukocyte Center strip </content>NEGA TIVE <content styleCode="Oscar lics"> (NEGATIVE )</content> UNK 0-3 <content [facility] styleCode="Fl[facility] Sofias d">Urine Red Medical Blood Cell Center </content>50 - 100 HPF<content styleCode="Oscar lics"> (0-3 HPF)</content> Nitrite NEGATIVE <content [facility] [Presence] in styleCode="Flakita Yin Urine by Test d">Urine Medical strip Nitrite Center </content>NEGA TIVE <content styleCode="Oscar lics"> (NEGATIVE )</content> UNK NEGATIVE <content [facility] styleCode="Flakita Sofias d">Urine Medical Bacteria Center </content>FEW HPF<content styleCode="Oscar lics"> (NEGATIVE HPF)</content> UNK 0-3 <content [facility] styleCode="[facility] [place] d">Urine White Medical Blood Cell Center </content>0-3 HPF<content styleCode="Oscar lics"> (0-3 HPF)</content> UNK <content [facility] styleCode="[facility] [place] d">Epithelial Medical Cell Center </content>2-5 LPF (Reference Range: not available)<br/ > ID Date Data Source Microbiology.[id number] 03/02/2018 04:33:[address] [facility] 400 Name Value Range Interpretation Code Description Data Cathy rce(s) Supporting Document(s ) UNK <item><content [facility] styleCode="Bold"> Medical Cent er Culture Status </content>
<t able><tbody><tr>< td>Specimen Number:</td><td>1 [id number]</td></tr ><tr><td>Sample Collection Date/Time: </td><td>03/02/2018 4:33 PM</td></tr><tr>< td>Specimen Source:</td><td>U RINE BLADDER</td></tr> <tr><td>Culture Status:</td><td>F inal </td></tr><tr><td >Culture Report:</td><td>N O FURTHER WORKUP </td></tr><tr><td >Urine Culture:</td><td> Collection Plate Date: 03/02/2018 20:19 </td></tr><tr><td >Organism 1:</td><td>CORYNE BACTERIUM SPECIES </td></tr></tbody ></table>
<ta ble border="2"><tbody ><tr><td></td><td >1</td></tr><tr>< td>Comment</td><t d></td></tr><tr>< td>Result Value</td><td>COR YNEBACTERIUM SPECIES </td></tr><tr><td >Result Status</td><td>Fi nal Result</td></tr>< tr><td></td><td>< /td></tr></tbody> </table></item> UNK <item><content [facility] styleCode="Bold"> Medical [facility] er Culture Report </content>
<t able><tbody><tr>< td>Specimen Number:</td><td>[id number]</td></tr ><tr><td>Sample Collection Date/Time: </td><td>03/02/2018 4:33 PM</td></tr><tr>< td>Specimen Source:</td><td>U RINE BLADDER</td></tr> <tr><td>Culture Report:</td><td>N O FURTHER WORKUP </td></tr><tr><td >Urine Culture:</td><td> Collection Plate Date: 03/02/2018 20:19 </td></tr><tr><td >Culture Status:</td><td>F inal </td></tr><tr><td >Organism 1:</td><td>CORYNE BACTERIUM SPECIES </td></tr></tbody ></table>
<ta ble border="2"><tbody ><tr><td></td><td >1</td></tr><tr>< td>Comment</td><t d></td></tr><tr>< td>Result Value</td><td>COR YNEBACTERIUM SPECIES </td></tr><tr><td >Result Status</td><td>Fi nal Result</td></tr>< tr><td></td><td>< /td></tr></tbody> </table></item> ID Date Data Source [id number] 02/23/2018 12:52:00 PM EDT NEXTG EN ([facility] [id number] [place]) Name Value Range Interpretation Code Description Data Cathy rce(s) Supporting Document(s ) [id number] MIUML <= 5 Above high normal [facility] Concentrations of hCG measured in sample s from apparently healthy,non- individuals were determined to be <5.0 m IU/mL. According toliterature, hCG results greater than or equal to 25 mIU/mL are c onsideredpositive.The concentration of hCG in maternal serum rises rapidly in earlypre gnancy. hCG levels less than 25 mIU/mL do not exclude . Afurther sample shoul d be tested after 48 hours if is suspected.

Procedure Social History Code Duration Value Status Description Data Source(s ) Smoking 02/18/2019 Daily Smoker completed Daily Smoker [facility] 03:[facility]00 PM [facility] r EDT Smoking 02/18/2019 Daily Smoker completed Daily Smoker [facility] 03:35:00 PM Medical Cente r EDT Smoking 02/18/2019 Daily Smoker completed Daily Smoker [facility] Smoking 11/03/2018 Denies Ever completed Denies Ever [facility] 02:58:00 PM Smoked Smoked [facility] EDT Smoking 11/03/2018 Denies Ever completed Denies Ever [facility] 02:53:00 PM Smoked Smoked [facility] EDT Smoking 11/03/2018 Denies Ever completed Denies Ever [facility] 02:37:00 PM Smoked Smoked [facility] EDT Smoking 10/02/2018 Former Smoker completed Former Smoker [facility] [place] 12[facility] AM [facility]) Caffeine Use 02/23/2018 completed NEXTGEN ([place] [facility] Details 12:00:[address] [facility]) 02/23/2018 Ex-cigarette completed Ex-cigarette NEXTGEN ([facility] 12:00:[address] [facility]) Alcohol Use 02/23/2018 beer & liquor completed beer & liquor NEXTGEN ([facility] 12:00:[address] [facility]) Smoking 02/23/2018 Former smoker completed Former smoker NEXTGEN ([facility] 12[facility] [facility]) Former Smoker completed Former Smoker eCW3 ([facility]) Smoking Former Smoker completed Former Smoker eCW2 ([facility]) Smoking Unknown if ever completed Unknown if ever Teo p[facility] smoked [facility] Vital Signs ID Date Data Source UNK Name Value Range Interpretation Code Description Data Source(s) Body weight 86.943898 kg 86.977378 kg [facility] Body temperature 36.137502 36.400891 [facility] Respiratory rate 18 /min 18 /min [facility] Oxygen saturation 98 % 98 % [facility] in Arterial blood [facility] by Pulse oximetry Heart rate 91 /min 91 /min [facility] Body height 160.156606 160.062920 cm [facility] Diastolic blood 86 mm[Hg] 86 mm[Hg] [facility] Systolic blood 123 mm[Hg] 123 mm[Hg] [facility] Body mass index 33.5 kg/m2 33.5 kg/m2 [facility] (BMI) [Ratio] [facility] Body temperature 37.560233 37.606596 [facility] Oxygen saturation 99 % 99 % [facility] J [facility]phs in Arterial blood [facility] by Pulse oximetry Heart rate 89 /min 89 /min [facility] Body weight 88.406491 kg 88.949558 kg [facility] Body temperature 37.907135 37.969699 [facility] Respiratory rate 18 /min 18 /min [facility] Oxygen saturation 97 % 97 % [facility] J osephs in [facility] by Pulse oximetry Heart rate 110 /min 110 /min [facility] Body height 160.222845 160.953222 cm [facility] Diastolic blood 87 mm[Hg] 87 mm[Hg] [facility] Systolic blood 142 mm[Hg] 142 mm[Hg] [facility] Body mass index 34.5 kg/m2 34.5 kg/m2 [facility] (BMI) [Ratio] [facility] Diastolic blood 76 mm[Hg] 76 mm[Hg] eCW3 ([facility]) Systolic blood 129 mm[Hg] 129 mm[Hg] eCW3 ([facility]) Body temperature 98.3 [degF] 98.3 [degF] eCW3 ( [facility]) Heart rate 20 /min 20 /min eCW3 ([facility]) Body mass index 34.54 kg/m2 34.54 kg/m2 eCW3 ([facility] (BMI) [Ratio] [facility]) Body weight 195 [lb_av] 195 [lb_av] eCW3 ([facility]) Body height 63 [in_i] 63 [in_i] eCW3 ([facility]) Diastolic blood 66 mm[Hg] 66 mm[Hg] eCW2 ([facility]) Systolic blood 103 mm[Hg] 103 mm[Hg] eCW2 ([facility]) Body temperature 98.1 [degF] 98.1 [degF] eCW2 ( [facility]) Heart rate 20 /min 20 /min eCW2 ([facility]) Body mass index 36.668 kg/m2 36.668 kg/m2 eCW2 ([place] (BMI) [Ratio] [facility]) Body weight 207 [lb_av] 207 [lb_av] eCW2 ([facility]) Body height 63 [in_us] 63 [in_us] eCW2 ([facility]) Heart rate 80 /min 80 /min NEXTGEN ([facility]) Diastolic blood 57 mm[Hg] 57 mm[Hg] NEXTGEN ( [facility]) Systolic blood 106 mm[Hg] 106 mm[Hg] NEXTGEN ([facility]) Body weight 87.090 kg 87.090 kg NEXTGEN ([facility]) Body height 160.02 cm 160.02 cm [facility] ([facility]) Oxygen saturation 98 % 98 % [facility] Arterial blood [facility] by Pulse oximetry Center) Body mass index 34.01 kg/m2 Overweight 34.01 kg/m2 NEXTGEN ([facility] (BMI) [Ratio] [facility]) Respiratory rate 18 /min 18 /min NEXTGEN ([facility]) Body temperature 36.44 Macarena 36.44 Macarena NEXTGEN ([facility]) Patient Treatment Plan of Care Planned Activity Planned Date Details Description Data Source (s) Loratadine 10 MG Oral 10/02/2018 12:00:00 eCW3 ([facility] Tablet [facility]) Provida DHA 32 mg-1.25 02/23/2018 12:00:00 NEXTGEN ([facility] mg-110 mg capsule [facility] Folic Acid 0.4 MG Oral 02/23/2018 12:00:00 NEXTGEN ([facility] Tablet [facility]) Prednisone [address] [facility] Ibuprofen [address] [facility] Ibuprofen [address] [facility] Amoxicillin 875 MG / [facility] Clavulanate 125 MG Oral Cent er Tablet
[2020-05-31 15:25] LABS: BASO % 1.1 % (0-2.0); EOS % 1.4 % (0-4.5); HEMATOCRIT 44.6 % (32.4-45.2); HEMOGLOBIN 15.1 GM/dL (10.7-15.3); LYMPH % 34.8 % (8-40); MCH 31.8 pg (25.7-33.7); MCHC 33.9 g/dl (32.0-36.0); MEAN CELL VOLUME 93.8 fl (80-96); MEAN PLT VOLUME 8.2 fl (7.5-11.1); MONO % 4.2 % (3.8-10.2); NEUT % 58.5 % (42.8-82.8); PLATELET COUNT 305 K/MM3 (134-434); RBC 4.76 M/mm3 (3.60-5.2); RDW 13.8 % (11.6-15.6); WHITE BLOOD COUNT 11.4 K/mm3 (4.0-10.0)
[2020-05-31 15:30] LABS: INR 0.94 (0.83-1.09); PROTHROMBIN TIME (PATIENT) 11.1 SEC (9.7-13.0)
[2020-05-31 15:35] LABS: EPI CELLS 9 /uL (0-25.1); HYALINE CASTS 0 /uL (0-3.1); PH,URINE 5.5 (5.0-8.0); URINE APPEARANCE CLEAR; URINE BACTERIA 99 /uL (0-1359); URINE BILIRUBIN NEGATIVE (NEGATIVE); URINE COLOR YELLOW; URINE GLUCOSE (UA) NEGATIVE (NEGATIVE); URINE KETONE TRACE (NEGATIVE); URINE LEUK ESTERASE NEGATIVE (NEGATIVE); URINE NITRITE NEGATIVE (NEGATIVE); URINE PROTEIN NEGATIVE (NEGATIVE); URINE RBC 5 /uL (0-23.9); URINE UROBILINOGEN 0.2 mg/dL (0.2-1.0); URINE WBC 3 /uL (0-25.8)
[2020-05-31 15:36] LABS: HCG,QUALITATIVE URINE Negative
--- NOTE | 2020-05-31 15:59 | PDOC ---
History of Present Illness - General Chief Complaint: Pain Stated Complaint: ABD PAIN, VAGINAL BLEEDING Time Seen by Provider: 05/31/20 14:28 - History of Present Illness Initial Comments: 05/31/20 15:59 34yo F w/ history of fibroids and cysts, surgery for fibroids, p/w pain and vaginal bleeding after intercourse last night. She endorses a month of lower ABD pain. Last night after intercourse she felt a severe pain develop with bleeding. Past History - Medical History Allergies/Adverse Reactions: Allergies Allergy/AdvReac Type Severity Reaction Status Date / Time thacker Allergy Mild Itching Verified 05/31/20 14:31 kiwi Allergy Mild Itching Verified 05/31/20 14:31 strawberry Allergy Mild Itching Verified 05/31/20 14:31 NUTS Allergy Severe ITCHY Uncoded 05/31/20 14:31 THROAT GRAPES Allergy Mild Itching Uncoded 05/31/20 14:31 ALL FRUIT Allergy Uncoded 05/31/20 14:31 Home Medications: Ambulatory Orders Ibuprofen 600 mg PO Q6H PRN #30 tablet 08/16/18 Ranitidine HCl [Zantac] 150 mg PO DAILY 07/26/19 Ibuprofen [Motrin -] 600 mg PO QID #28 tablet 07/27/19 Ibuprofen [Motrin -] 200 mg PO TID PRN #30 tablet 05/31/20 Anemia: No Asthma: No Cancer: No Cardiac Disorders: No CVA: Yes (TIA X2 [id number] MRI 1 MONTH AGO) COPD: No CHF: No Dementia: No Diabetes: No GI Disorders: Yes (GERD) Disorders: No HTN: No Hypercholesterolemia: No Liver Disease: No Seizures: No Thyroid Disease: No - Surgical History Appendectomy: Yes - Reproductive History Is Patient Now?: No - Psycho-Social/Smoking History Smoking History: Never smoked Have you smoked in the past 12 months: Yes Number of Cigarettes Smoked Daily: 7 Information on smoking cessation initiated: No 'Breaking Loose' booklet given: 07/26/19 - Substance Abuse Hx (Audit-C & DAST Scrn) How often the patient has a drink containing alcohol: Never Score: In Men: 4 or > Positive; In Women: 3 or > Positive: 0 Screen Result (Pos requires Nsg. Audit-10AR): Negative In the last yr the pt used illegal drug/Rx for NonMed reason: No Score: Yes response is considered Positive: 0 Screen Result (Positive result requires Nsg. DAST-10): Negative Review of Systems - Review of Systems Able to Perform ROS?: Yes Is the patient limited Icelandic proficient: No Constitutional: No: Fever, Loss of Appetite HEENTM: No: Eye Pain, Recent change in vision Respiratory: No: Symptoms reported Cardiac (ROS): No: Symptoms Reported : Yes: Other (dysparuneia, vaginal bleeding) Musculoskeletal: No: Symptoms Reported Integumentary: No: Symptoms Reported Neurological: No: Symptoms reported Endocrine: No: Symptoms Reported Hematologic/Lymphatic: No: Symptoms Reported All Other Systems: Reviewed and Negative *Physical Exam - Vital Signs Last Vital Signs Temp Pulse Resp BP Pulse Ox 98.4 F 90 19 141/96 97 05/31/20 14:28 05/31/20 14:28 05/31/20 14:28 05/31/20 14:28 05/31/20 14:28 - Physical Exam General Appearance: Yes: Nourished, Appropriately Dressed HEENT: positive: EOMI, CASIE Neck: positive: Supple. negative: Tender Respiratory/Chest: positive: Lungs Clear, Normal Breath Sounds. negative: Chest Tender Cardiovascular: positive: Regular Rhythm, Regular Rate Gastrointestinal/Abdominal: positive: Normal Bowel Sounds, Soft, Tenderness Musculoskeletal: positive: Normal Inspection. negative: CVA Tenderness Extremity: positive: Normal Capillary Refill, Normal Inspection, Normal Range of Motion Integumentary: positive: Normal Color, Dry, Warm Neurologic: positive: Fully Oriented, Alert, Normal Mood/Affect ED Treatment Course - LABORATORY CBC & Chemistry Diagram: 05/31/20 15:10 05/31/20 15:10 - ADDITIONAL ORDERS Additional order review: Laboratory Results 05/31/20 05/31/20 15:10 15:10 PT with INR 11.10 INR 0.94 Urine Color Yellow Urine Appearance Clear Urine pH 5.5 Ur Specific [place] 1.025 Urine Protein Negative Urine Glucose (UA) Negative Urine Ketones Trace H Urine Blood Trace Urine Nitrite Negative Urine Bilirubin Negative Urine Urobilinogen 0.2 Ur Leukocyte Esterase Negative Urine WBC (Auto) 3 Urine RBC (Auto) 5 Urine Casts (Auto) 0 U Epithel Cells (Auto) 9 Urine Bacteria (Auto) 99 Urine HCG, Qual Negative 05/31/20 15:10 RBC 4.76 MCV 93.8 MCHC 33.9 RDW 13.8 MPV 8.2 Neutrophils % 58.5 Lymphocytes % 34.8 Monocytes % 4.2 Eosinophils % 1.4 Basophils % 1.1 D Discharge - Discharge Information Problems reviewed: Yes Clinical Impression/Diagnosis: Vaginal bleeding Condition: Good Disposition: HOME - Additional Discharge Information Prescriptions: Ibuprofen [Motrin -] 200 mg PO TID PRN #30 tablet PRN Reason: Pain Level 6-10 - Follow up/Referral Referrals: eS Radford [Primary Care Provider] - - Patient Discharge Instructions - Post Discharge Activity
[2020-05-31 16:06] LABS: ALBUMIN 3.9 g/dl (3.4-5.0); BILIRUBIN,TOTAL 0.7 mg/dL (0.2-1); BLOOD UREA NITROGEN 12.2 mg/dL (7-18); CALCIUM 9.1 mg/dL (8.5-10.1); CREATININE 0.7 mg/dL (0.55-1.3); POTASSIUM 4.5 mmol/L (3.5-5.1); TOT PROT 7.8 g/dl (6.4-8.2)
--- NOTE | 2020-05-31 17:05 | PDOC ---
Documentation entered by John Patrick SCRIBE, acting as scribe for Royal Felipe MD. Royal Felipe MD: This documentation has been prepared by the Darnell jacome Alexis, SCRIBE, under my direction and personally reviewed by me in its entirety. I confirm that the documentation accurately reflects all work, treatment, procedures, and medical decision making performed by me. Attending Attestation - Resident Resident Name: Tanner Pennington - ED Attending Attestation I have performed the following: I have examined & evaluated the patient, The case was reviewed & discussed with the resident, I agree w/resident's findings & plan, Exceptions are as noted - HPI HPI: 05/31/20 16:24 The patient is a 34 year old female with a significant past medical history of TIA X2 [id number], fibroids and cysts, and GERD who presents to the emergency department for evaluation of vaginal pain and bleeding that began after intercourse last night. The patient reports lower abdominal pain that began one month ago, crampy in nature. The patient denies chest/back pain, cough, and shortness of breath. Denies fever, chills, nausea, vomiting, and/or any GI symptoms. Denies any other symptoms. Allergies: all fruit, nuts, Surgical Hx: Appendectomy, surgery for fibroids PCP: Dr. Radford - Physicial Exam PE: 05/31/20 16:10 See resident exam - Medical Decision Making 05/31/20 17:11 34 F with lower abdominal pain x 1 month and vaginal bleeding after intercourse. Has had prior appendectomy. - Labs, UA, UCx - TVUS 05/31/20 18:24 Labs, UA unremarkable TVUS normal Pt is well appearing, with normal vitals. Clinically stable for DC at this time. I discussed the physical exam findings, ancillary test results and final diagnoses with the patient. I answered all of the patient's questions. The patient was satisfied with the care received and felt comfortable with the discharge plan and treatment plan. The patient agrees to follow up with the primary care physician within 24-72 hours. Discharge - Discharge Information Problems reviewed: Yes Clinical Impression/Diagnosis: Vaginal bleeding Condition: Good Disposition: HOME - Additional Discharge Information Prescriptions: Ibuprofen [Motrin -] 200 mg PO TID PRN #30 tablet PRN Reason: Pain Level 6-10 - Follow up/Referral Referrals: Se Radford [Primary Care Provider] - - Patient Discharge Instructions - Post Discharge Activity
== END 2020-05-31 18:03 | disposition home or self-care (01) ==
LOC: JER 14:26
DX: N93.9 Abnormal uterine and vaginal bleeding, unspecified (principal)
CPT/HCPCS: 36415; 76830-TC; 80053; 81003; 84703; 85025; 85610; 87086; 99284-25

== ENCOUNTER 2020-11-14 17:34 | Emergency (ER) | payer OTHER ==
[2020-11-14 17:47] VITALS: BP 124/79; PULSE 81; TEMP 97.8; BMI 32.2
[2020-11-14] MEDS ORDERED: diazePAM 5 MG TABLET PO ONE ×2 (18:36→18:38)
[2020-11-14] MEDS ORDERED: LIDOCAINE 5% TOPICAL PATCH TP ONE (18:36)
[2020-11-14] MEDS ORDERED: KETOROLAC TROMETHAMINE 30 MG/1 ML VIAL IM ONE (18:36)
[2020-11-14] MEDS ORDERED: KETOROLAC TROMETHAMINE 30 MG/1 ML VIAL ONE (18:38)
[2020-11-14] MEDS ORDERED: LIDOCAINE 5% TOPICAL PATCH ONE (18:38)
[2020-11-14] MEDS ORDERED: diazePAM 5 MG TABLET ONE (18:39)
[2020-11-14] MEDS ORDERED: LIDOCAINE PATCH REMOVAL MC SCH (22:00)
== END 2020-11-14 18:46 | disposition home or self-care (01) ==
LOC: JERFT 17:34
PROC: 3E0233Z Introduction of Anti-inflammatory into Muscle, Percutaneous Approach (ICD-10-PCS; principal; 2020-11-14)
DX: M54.6 Pain in thoracic spine (principal); M62.838 Other muscle spasm
CPT/HCPCS: 99284-25

== ENCOUNTER 2022-03-01 07:20 | Day surgery (SDC) | payer OTHER ==
[2022-02-22 09:26] VITALS: BMI 32.2
[2022-03-01] MEDS ORDERED: LIDOCAINE HCL 1%, 10 MG/ML (20ML VIAL) ONE (08:21)
[2022-03-01] MEDS ORDERED: BUPIVACAINE HCL/PF 0.25% (2.5MG/ML) 10 ML VIAL ONE (08:21)
[2022-03-01 10:52] VITALS: TEMP 98
[2022-03-01 11:08] VITALS: BP 118/69; PULSE 71
== END 2022-03-01 11:11 | disposition home or self-care (01) ==
LOC: FASU 07:20
PROVIDERS: ATTEND Orthopaedic Surgery
PROC: 0LN60ZZ Release Left Lower Arm and Wrist Tendon, Open Approach (ICD-10-PCS; principal; 2022-03-01 10:24)
DX: M65.4 Radial styloid tenosynovitis [de Quervain] (principal)
CPT/HCPCS: 84703

== ENCOUNTER 2023-09-11 05:45 | Inpatient (IN) | payer OTHER ==
[2023-09-11] MEDS ORDERED: CITRIC ACID/SODIUM CITRATE 30 ML UNIT-DOSE CUP PO ONE (06:15)
[2023-09-11] MEDS ORDERED: ELECTROLYTE-148 SOLN 500 ML IV SCH (06:15)
[2023-09-11] MEDS ORDERED: ELECTROLYTE-148 SOLN 1,000 ML IV SCH (06:45)
[2023-09-11 06:58] LABS: HEMATOCRIT 34.7 % (32.4-45.2); HEMOGLOBIN 12.3 GM/dL (10.7-15.3); MCH 32.3 pg (25.7-33.7); MCHC 35.3 g/dl (32.0-36.0); MEAN CELL VOLUME 91.4 fl (80-96); MEAN PLT VOLUME 7.6 fl (7.5-11.1); PLATELET COUNT 261 10^3/uL (134-434); RDW 14.4 % (11.6-15.6); WHITE BLOOD COUNT 8.3 K/mm3 (4.0-10.0)
[2023-09-11 06:59] LABS: INR 0.93 (0.83-1.09); PROTHROMBIN TIME (PATIENT) 10.8 SEC (9.7-13.0)
[2023-09-11 07:01] LABS: POTASSIUM 4.1 mmol/L (3.5-5.1)
[2023-09-11 07:02] LABS: ACTIVATED PTT 28.4 SECONDS (25.2-36.5)
[2023-09-11 07:04] LABS: CALCIUM 8.8 mg/dL (8.5-10.1)
[2023-09-11 07:05] LABS: BLOOD UREA NITROGEN 6.9 mg/dL (7-18)
[2023-09-11 07:08] LABS: CREATININE 0.6 mg/dL (0.55-1.3)
[2023-09-11] MEDS ORDERED: OXYTOCIN 30 UNITS in 0.9% NS 30 UNIT/500 ML INFUS.BAG IVPB ONE (07:47)
[2023-09-11 07:50] VITALS: BMI 35.9
[2023-09-11] MEDS ORDERED: ONDANSETRON 4 MG/2 ML VIAL ONE (07:52)
[2023-09-11] MEDS ORDERED: ceFAZolin SODIUM 1 GM VIAL ONE (07:52)
[2023-09-11] MEDS ORDERED: PHENYLEPHRINE HCL 10 MG/1 ML SINGLE DOSE VIAL ONE (07:52)
[2023-09-11] MEDS ORDERED: morphine SULFATE/PF 1 MG/2 ML (2cc Syringe - QUVA) ONE (07:52)
[2023-09-11] MEDS ORDERED: FENTANYL CITRATE/PF 50 MCG/ML VIAL ONE (07:52)
[2023-09-11] MEDS ORDERED: SODIUM CHLORIDE 0.9% P/F 10 ML VIAL IJ ONE (07:52)
[2023-09-11] MEDS ORDERED: ePHEDrine SULFATE 50 MG/1 ML AMPULE ONE (07:53)
[2023-09-11 08:00] LABS: HIV INTERPRETATION NEGATIVE (NEGATIVE)
[2023-09-11] MEDS ORDERED: SUCCINYLCHOLINE CHLORIDE 200 MG/10 ML SYRINGE ONE (08:00)
[2023-09-11] MEDS ORDERED: PROPOFOL 20 ML ONE (08:00)
[2023-09-11] MEDS ORDERED: morphine SULFATE/PF 1 MG/2 ML (2cc Syringe - QUVA) IT ONE (08:29)
[2023-09-11] MEDS ORDERED: ONDANSETRON 4 MG/2 ML VIAL IVPUSH PRN (08:29)
[2023-09-11] MEDS ORDERED: ACETAMINOPHEN 1000 MG/100 ML BAG IVPB PRN (08:30)
[2023-09-11 08:31] LABS: ANISOCYTOSIS 2+; MACROCYTOSIS 0
[2023-09-11] MEDS ORDERED: KETOROLAC TROMETHAMINE 30 MG/1 ML VIAL ONE (09:59)
[2023-09-11] MEDS ORDERED: METHYLERGONOVINE MALEATE 0.2 MG/1 ML AMP IM PRN (10:23)
[2023-09-11] MEDS ORDERED: IBUPROFEN 800 MG/8 ML IJ IVPB PRN (10:24)
[2023-09-11 10:51] LABS: CORD BASE EXCESS -1.5 mmol/L (0-2); CORD HCO3 25.7 mmHg (20-29); CORD PCO2 53.4 mmHg (30-78); CORD pH 7.3 (7.14-7.44)
[2023-09-11 10:53] LABS: CORD HCO3 25.9 mmHg (20-29); CORD PCO2 68.3 mmHg (30-78); CORD pH 7.197 (7.14-7.44)
[2023-09-11] MEDS ORDERED: OXYTOCIN 20 UNITS in 0.9% NS 20 UNIT/1,000 ML INFUS.BAG IV ONE (12:37)
[2023-09-11] MEDS: OXYTOCIN 20 UNITS in 0.9% NS 20 UNIT/1,000 ML INFUS.BAG IV SCH ×2 (12:38→22:13)
[2023-09-11] MEDS: CEFAZOLIN SODIUM 2 GM in DEXTROSE 5%-WATER 100 ML IVPB SCH ×2 (13:10→17:35)
[2023-09-11 14:14] VITALS: RESP 18
[2023-09-11] MEDS ORDERED: oxyCODONE HCL 5 MG TABLET PO PRN ×2 (22:23)
[2023-09-12] MEDS: CEFAZOLIN SODIUM 2 GM in DEXTROSE 5%-WATER 100 ML IVPB SCH (02:23)
[2023-09-12] MEDS: SIMETHICONE 80 MG TAB.CHEW (FP) PO PRN ×2 (02:52→23:15)
[2023-09-12] MEDS: IBUPROFEN 600 MG TABLET (FP) PO PRN ×2 (02:52→12:30)
[2023-09-12] MEDS: LEVOTHYROXINE NA 25 MCG TABLET (FP) PO SCH (06:18)
[2023-09-12 07:45] LABS: BASO % 0.8 % (0-2.0); EOS % 2.7 % (0-4.5); HEMATOCRIT 37.6 % (32.4-45.2); HEMOGLOBIN 12.8 GM/dL (10.7-15.3); LYMPH % 28.8 % (8-40); MCH 32.1 pg (25.7-33.7); MCHC 34.1 g/dl (32.0-36.0); MEAN CELL VOLUME 94.2 fl (80-96); MEAN PLT VOLUME 7.9 fl (7.5-11.1); MONO % 6.4 % (3.8-10.2); NEUT % 61.3 % (42.8-82.8); PLATELET COUNT 259 10^3/uL (134-434); RBC 3.99 M/mm3 (3.60-5.2); RDW 14.6 % (11.6-15.6)
[2023-09-12] MEDS: ENOXAPARIN NA (PORCINE) 40 MG/0.4 ML DISP.SYRIN SQ SCH (09:21)
[2023-09-12] MEDS ORDERED: BISACODYL 10 MG SUPP.RECT RC PRN (10:23)
[2023-09-12] MEDS ORDERED: DIPHTH,PERTUSS(ACELL),TET 0.5 ML DISP.SYRIN IM ONE (14:00)
[2023-09-12] MEDS: ACETAMINOPHEN 325 MG TABLET (FP) PO PRN (23:14)
[2023-09-13] MEDS: IBUPROFEN 600 MG TABLET (FP) PO PRN ×3 (05:55→22:08)
[2023-09-13] MEDS: LEVOTHYROXINE NA 25 MCG TABLET (FP) PO SCH (06:33)
[2023-09-13] MEDS: ENOXAPARIN NA (PORCINE) 40 MG/0.4 ML DISP.SYRIN SQ SCH (09:25)
[2023-09-13] MEDS: ACETAMINOPHEN 325 MG TABLET (FP) PO PRN ×2 (11:44→16:58)
[2023-09-13] MEDS: SIMETHICONE 80 MG TAB.CHEW (FP) PO PRN ×2 (13:10→22:08)
[2023-09-14] MEDS: SIMETHICONE 80 MG TAB.CHEW (FP) PO PRN ×4 (04:17→21:57)
[2023-09-14] MEDS: IBUPROFEN 600 MG TABLET (FP) PO PRN ×4 (04:18→21:57)
[2023-09-14] MEDS: LEVOTHYROXINE NA 25 MCG TABLET (FP) PO SCH (06:19)
[2023-09-14 07:59] LABS: BASO % 0.3 % (0-2.0); EOS % 2.5 % (0-4.5); HEMATOCRIT 36.6 % (32.4-45.2); HEMOGLOBIN 12.4 GM/dL (10.7-15.3); LYMPH % 35.7 % (8-40); MCH 31.9 pg (25.7-33.7); MCHC 33.9 g/dl (32.0-36.0); MEAN PLT VOLUME 7.5 fl (7.5-11.1); MONO % 5.8 % (3.8-10.2); NEUT % 55.7 % (42.8-82.8); PLATELET COUNT 315 10^3/uL (134-434); RDW 14.3 % (11.6-15.6); WHITE BLOOD COUNT 10.4 K/mm3 (4.0-10.0)
[2023-09-14] MEDS: ENOXAPARIN NA (PORCINE) 40 MG/0.4 ML DISP.SYRIN SQ SCH (09:19)
[2023-09-15] MEDS: SIMETHICONE 80 MG TAB.CHEW (FP) PO PRN ×2 (03:10→07:38)
[2023-09-15] MEDS: IBUPROFEN 600 MG TABLET (FP) PO PRN ×2 (03:10→07:38)
[2023-09-15] MEDS: LEVOTHYROXINE NA 25 MCG TABLET (FP) PO SCH (06:28)
[2023-09-15] MEDS: ENOXAPARIN NA (PORCINE) 40 MG/0.4 ML DISP.SYRIN SQ SCH (09:24)
[2023-09-15 10:13] VITALS: BP 116/76; PULSE 79; TEMP 98.6
== END 2023-09-15 12:10 | disposition home or self-care (01) | DRG 540 ==
LOC: JLDR 05:45 → J3W 13:30
PROVIDERS: ADMIT Obstetrics & Gynecology; ATTEND Obstetrics & Gynecology
PROC: 10D00Z1 Extraction of Products of Conception, Low, Open Approach (ICD-10-PCS; principal; 2023-09-11)
PROC: 3E0334Z Introduction of Serum, Toxoid and Vaccine into Peripheral Vein, Percutaneous Approach (ICD-10-PCS; 2023-09-11)
DX: O34.211 Maternal care for low transverse scar from previous cesarean delivery (principal); N85.8 Other specified noninflammatory disorders of uterus; O99.214 Obesity complicating childbirth; Z3A.39 39 weeks gestation of pregnancy; Z29.13 Encounter for prophylactic Rho(D) immune globulin; Z37.0 Single live birth
CPT/HCPCS: 36415; 36600; 80048; 82803; 85025; 85461; 85610; 85730; 86780; 86850; 86900; 86901; 87389; 88307-TC; 90715; 94010; 96372; J2790